=== PATIENT | female | born 1980 | race African-American/Black ===

== ENCOUNTER 2017-10-25 12:54 | Inpatient (IN) | payer OTHER ==
[2017-10-25] MEDS ORDERED: Calcium Gluc 4.6 MEQ/10 ML (100 MG/ML) SLOW IVP PRN ×2 (14:09→16:14)
[2017-10-25 14:11] VITALS: BMI 35.2
[2017-10-25] MEDS ORDERED: FLU VACC QS2017-18 36 mo. & older 0.5 ML SYRINGE IM ONE (14:15)
--- NOTE | 2017-10-25 14:36 | PDOC.LDHP ---
Labor and Delivery H&P Chief complaint: other (elevated BP and headache) HPI: 37 yo who presented for PP visit to [facility] earlier today and was found to have elevated BPs and headaches. Pt delivered at [facility] last week after being induced for PIH. Did not meet criteria during delivery at that time for pre- eclampsia with severe features, was not started on Mag. Pt has migraine headaches chronically, does not take any medication for this. Headaches have been temporal in location, throbbing in nature, usually alternating left and right side of her head. No vision changes, LE swelling, RUQ abd pain, SOB, N/V. - Physical Exam Vital signs reviewed and normal: yes General: NAD, resting Heart: RRR Lungs: nonlabored breathing Abdomen: NTTP Extremeties: other (bilateral LE reflexes present, no clonus) - Assessment Elevated BP - Plan Plan: observation in L&D -: Will observe on L&D, collect pre-E rule out labs, monitor BPs serially. Advised to rest for now. If labwork returns positive with persistently elevated BPs, will start on Mag and observe for 24 hours. <Ashish Cuevas - Last Filed: 10/25/17 14:32> <Tre Herrera - Last Filed: 10/25/17 19:57> Allergies/Adverse Reactions: Allergies Allergy/AdvReac Type Severity Reaction Status Date / Time Sulfa (Sulfonamide Allergy Swollen Verified 10/25/17 13:57 Antibiotics) Lips Attending Addendum - Attending Addendum Date/Time: 10/25/171955 I personally evaluated the patient and discussed the management with Dr. Cuevas. I agree with and repeated the History, Examination, Assessment and Plan documented above with any addition or exceptions noted below. Pt with no headache currently. BP's 150's with a couple in the 170s. No luis/ ruq pain. 3 beat clonus and slightly hyperreflexic. + severe by symptoms and pressures. Will go ahead start magnesium. BP control if >160/110. <Tre Herrera - Last Filed: 10/25/17 19:57>
[2017-10-25 14:43] LABS: Hemoglobin 11.6 g/dL (12.0-16.0); Mean Corpuscular HGB CONC 32.4 g/dL (32.0-36.0); Mean Corpuscular Hemoglobin 27.8 pg (27.0-31.0); Mean Corpuscular Volume 85.9 fl (81.0-99.0); Mean Platelet Volume 7.6 fL (7.4-10.4); Platelet Count 281 thou/uL (130-400); Red Blood Cell (RBC) Count 4.16 mill/uL (4.20-5.40); White Blood Cell (WBC) Count 5.5 thou/uL (4.8-10.8)
[2017-10-25 14:56] LABS: Band 1 % (5-11); Eosinophils 2 % (0-10); Lymphocytes 18 % (21-51); MDiff Complete? YES; Metamyelocyte 1 % (0-0); Monocytes 5 % (0-10); Neutrophil 60 % (42-75); Ovalocytes SLIGHT = 2-5 cells (100X) (0-1/hpf); PLT Morphology Comment Appears Adequate; Polychromasia SLIGHT = 2-3 cells (100X) (0-2/hpf); Reactive Lymphocytes 13 % (0-10); Tear Drops SLIGHT = 2-5 cells (100X) (0-1/hpf)
[2017-10-25 15:06] LABS: ALT (SGPT) 18 U/L (8-55); AST (SGOT) 13 U/L (5-34); Albumin 3.6 g/dL (3.5-5.0); Alkaline Phosphatase 106 U/L (40-150); Anion Gap 10 mmol/L (10-20); BUN (Urea Nitrogen) 14 mg/dL (7.0-18.7); Bilirubin, Total 0.3 mg/dL (0.2-1.2); Calc. Creatinine Clearance 177 mL/min (70-130); Calcium 9.2 mg/dL (7.8-10.44); Carbon Dioxide 25 mmol/L (22-29); Chloride 108 mmol/L (98-107); Estimated GFR-MDRD Greater than 90; Glucose 148 mg/dL (70-105); Potassium 3.6 mmol/L (3.5-5.1); Protein, Total 6.6 g/dL (6.0-8.3); Sodium 139 mmol/L (136-145)
[2017-10-25] MEDS ORDERED: Acetaminophen 500 MG TAB PO PRN (15:30)
[2017-10-25] MEDS ORDERED: Magnesium Sulfate 20 GM/WATER 500 ML BAG IVPB SCH ×2 (16:15→16:45)
--- NOTE | 2017-10-25 16:43 | PDOC.EVN ---
Attending Addendum - Attending Addendum Date/Time: 10/25/17 2722 I personally evaluated the patient and discussed the management with Dr. Herrera on 10/25/17. I agree with the History, Examination, Assessment and Plan documented above with any addition or exceptions noted below. Patient is a 37 yo s/p who presents with BPs elevated into the severe range at [facility] and on L&D, along with intractable headache. Will start Mag for 24 hours for preeclampsia with severe features based on blood pressures. Elevated protein:creatinine ratio likely due to clean catch rather than cath sample, will repeat for accuracy. However, patient has severe features and requires Mag even without proteinuria. Platelets, LFTs normal.
[2017-10-25] MEDS: Lactated Ringer's 1,000 ML IV SCH (16:55)
[2017-10-25] MEDS: Magnesium Sulfate 20 gm/500 ml 20 GM/500 ML BAG IVPB SCH (17:05)
[2017-10-25 20:25] LABS: Creatinine, Urine 49.28 mg/dL (47-110)
[2017-10-25] MEDS: diphenhydrAMINE 50 MG/ML VIAL IVP SCH (20:54)
[2017-10-25] MEDS: Metoclopramide HCl 10 MG/2 ML VIAL IVP SCH (20:55)
[2017-10-25] MEDS ORDERED: Labetalol HCl 100 MG/20 ML VIAL SLOW IVP PRN (22:24)
[2017-10-25] MEDS ORDERED: Labetalol 100 MG TAB PO SCH (22:30)
--- NOTE | 2017-10-25 22:40 | PDOC.EVN ---
Event Note - Event Note Event Note: Saw and examined patient at 2100 on 10/25/17 S: Patient doing well, resting in bed without complaints. She denies any vision changes, dyspnea, chest pain, n/v/abd pain, somnolence, muscle weakness. O: Last BP taken was 156/73 Gen: No acute distress, resting comfortably in bed CV: RRR no murmurs, gallops Resp: CTAB no wheezes, rales Neuro: No focal deficits, brisk reflexes b/l A/P: Pre-eclampsia with severe features: due to severe range BPs. Mag ggt start at 5 pm. Starting patient on TID nifedipine. IV Labetalol PRN. Will continue to monitor BPs and q4h mag checks.
--- NOTE | 2017-10-26 01:34 | PDOC.EVN ---
Event Note - Event Note Event Note: Matt seen and examined for mag check at 0130 on 10/26/17 S: Matt states that she is doing fine. She has continued to have a headache which is the same headache she has had since delivering last week. She rates it anywhere from a 5/10 to 7/10. She denies vision changes, chest pain, dyspnea , somnolence, weakness, abdominal pain/n/v/d. O: UOP has been about 100 ml/hr for the last 4 hours Most recent BP was 126/70. Gen: Resting in bed, no acute distress CV: RRR no murmurs, gallops Resp: CTAB Neuro: Brink reflexes b/l, no focal deficits A/P: Pre-Eclampsia with severe features: Continue Mag checks q4h, monitoring UOP. Continue mag and BP control. No changes at this time. Reglan and benadryl have helped the headaches.
[2017-10-26] MEDS: Magnesium Sulfate 20 gm/500 ml 20 GM/500 ML BAG IVPB SCH ×2 (01:44→11:40)
[2017-10-26] MEDS: diphenhydrAMINE 50 MG/ML VIAL IVP SCH (01:44)
[2017-10-26] MEDS: Metoclopramide HCl 10 MG/2 ML VIAL IVP SCH ×4 (01:44→21:34)
[2017-10-26] MEDS: Acetaminophen 500 MG TAB PO PRN ×3 (01:45→08:12)
--- NOTE | 2017-10-26 05:54 | PDOC.EVN ---
Event Note - Event Note Event Note: Patient seen and examined at 0500 on 10/26/17 S: Matt is doing well, sleeping comfortably upon entering room. States that her headache is improved since taking reglan and benadryl. Denies any symptoms of vision changes, chest pain, dyspnea, n/v/d/abd pain. O: Recent BP 156/83, UOP 100 ml/hr Gen: No acute distress, sleeping comfortably in bed CV: RRR no murmurs, gallops Resp: CTAB no wheezes, rales, rhonchi Neuro: no focal deficits, 2+/4 DTRs A/P: Pre-Eclampsia with severe features: Continue IV mag and q4h Mag checks. Continue headache control with reglan and benadryl. Continue fluids. <Kaleb Capps - Last Filed: 10/26/17 05:49> Attending Addendum - Attending Addendum Date/Time: 10/26/17 2080 I personally evaluated the patient and discussed the management with Dr. Capps. Dr. Todd kincaid. <Tre Herrera - Last Filed: 10/26/17 15:48>
--- NOTE | 2017-10-26 08:17 | PDOC.FM ---
- Subjective Subjective: Ms. Kramer is complaining of a headache this morning. She reports that she's had it all night. She does not want anymore benadryl. She was discharged from the [facility] with reglan for her headaches. She says this headache is worse than her usual migraines. She endorses some photophobia with her headache. - Objective MAR Reviewed: Yes Vital Signs & Weight: Vital Signs (12 hours) Temp Pulse Resp 10/26/17 04:00 98.3 F 63 20 10/26/17 00:00 98.3 F 63 20 Result Diagrams: 10/25/17 14:32 10/25/17 14:32 <Keerthi White - Last Filed: 10/26/17 10:39> - Objective Vital Signs & Weight: Vital Signs (12 hours) Temp Pulse Resp BP 10/26/17 16:05 98.4 F 75 18 10/26/17 14:40 75 142/89 H 10/26/17 12:00 98.1 F 83 18 10/26/17 08:00 98.1 F 75 20 Result Diagrams: 10/25/17 14:32 10/25/17 14:32 <Rl Brooks - Last Filed: 10/26/17 17:37> Phys Exam - Physical Examination Constitutional: NAD HEENT: PERRLA, moist MMs Respiratory: no wheezing, no rales, no rhonchi, clear to auscultation bilateral Cardiovascular: RRR, no significant murmur, no rub Gastrointestinal: soft, non-tender, no distention Musculoskeletal: no edema, pulses present Neurological: non-focal, normal sensation, moves all 4 limbs (normal patellar reflex; adequate urine output) Psychiatric: normal affect, A&O x 3 <Keerthi White - Last Filed: 10/26/17 10:39> Dx/Plan (1) Pre-eclampsia superimposed on chronic hypertension, Code(s): O11.5 - PRE-EXISTING HTN WITH PRE-ECLAMPSIA, COMP THE PUERPERIUM; O10.93 - UNSP PRE-EXISTING HYPERTENSION COMPLICATING THE PUERPERIUM Status: Acute - Plan Plan: 37 yo s/p at the [facility] one week ago with a hx of chronic hypertension and superimposed PreE with severe features during delivery, presents with several severe range blood pressures in clinic and a headache, admitted for chronic hypertension with superimposed PreE with severe features. 1.)Chronic Hypertension 2.)Superimposed PreE with severe features 3.)Headache Plan: Pt was started on magnesium yesterday at 1615. She has had presures in the 130- 140s systolic, however she did have 3 severe range blood pressures this am. She also has had adequate UOP and normal patellar reflexes. She still endorses a headache this am. We will start her on amlodipine 5mg daily for her elevated blood pressures. We will also provide her with reglan q6h nidia, imitrex 2.5mg X1 , and tylenol 100mg q6h scheduled. We will dc her magnesium this afternoon at 24 hours. There does not seem to be good evidence as to when to dc magnesium in the period. However, if her blood pressure are controlled this afternoon and headache resolved, we will feel comfortable with discontinuing magnesium. <Keerthi White - Last Filed: 10/26/17 10:39> Attending Addendum - Attending Addendum Date/Time: 10/26/17 3846 I personally evaluated the patient and discussed the management with Dr. White. I agree with the History, Examination, Assessment and Plan documented above with any addition or exceptions noted below. We will stop Mag at 24 hours. We will adjsut emds to address migraine and elevated BP. <Rl Brooks - Last Filed: 10/26/17 17:37>
[2017-10-26] MEDS ORDERED: NIFEdipine 10 MG CAP PO SCH ×2 (09:00→22:15)
[2017-10-26] MEDS ORDERED: Labetalol 100 MG TAB PO SCH (09:00)
[2017-10-26] MEDS ORDERED: SUMAtriptan Succinate 25 MG TAB PO SCH (10:30)
[2017-10-26] MEDS ORDERED: Metoclopramide HCl 10 MG/2 ML VIAL IVP SCH (10:30)
[2017-10-26] MEDS ORDERED: Amlodipine 5 MG TAB PO SCH (14:30)
[2017-10-26] MEDS: Acetaminophen 500 MG TAB PO SCH ×2 (14:41→21:33)
[2017-10-26] MEDS: Lactated Ringer's 1,000 ML IV SCH ×2 (14:42→16:49)
[2017-10-26] MEDS ORDERED: Sodium Chloride 0.9% 10 ML ONE (21:30)
[2017-10-27] MEDS ORDERED: Sodium Chloride 0.9% 10 ML ONE (04:12)
[2017-10-27] MEDS: Acetaminophen 500 MG TAB PO SCH (04:15)
[2017-10-27] MEDS: Metoclopramide HCl 10 MG/2 ML VIAL IVP SCH (04:16)
[2017-10-27 04:26] VITALS: TEMP 98.6
--- NOTE | 2017-10-27 07:17 | PDOC.FM ---
- Subjective Subjective: Pt denies a headache today. States she slept well and feels well overall. Magnesium dc'd yesterday. - Objective MAR Reviewed: Yes Vital Signs & Weight: Vital Signs (12 hours) Temp Pulse Resp BP BP 10/27/17 04:00 98.6 F 72 16 147/89 H 10/27/17 02:00 69 149/73 H 10/26/17 23:30 98.8 F 82 18 146/75 H 10/26/17 21:30 65 163/91 H 10/26/17 19:30 98.8 F 80 16 143/73 H Result Diagrams: 10/25/17 14:32 10/25/17 14:32 <Keerthi White - Last Filed: 10/27/17 08:13> - Objective Vital Signs & Weight: Vital Signs (12 hours) Temp Pulse Resp BP BP BP 10/27/17 08:57 72 140/78 10/27/17 08:12 98.6 F 72 20 10/27/17 04:00 98.6 F 72 16 147/89 H 10/27/17 02:00 69 149/73 H Result Diagrams: 10/25/17 14:32 10/25/17 14:32 <Tre Herrera - Last Filed: 10/27/17 11:32> Phys Exam - Physical Examination Constitutional: NAD HEENT: PERRLA, moist MMs no increased work of breathing Cardiovascular: RRR Gastrointestinal: soft, non-tender, no distention Musculoskeletal: no edema Neurological: non-focal, normal sensation, moves all 4 limbs Psychiatric: normal affect Skin: no rash <Keerthi White - Last Filed: 10/27/17 08:13> Dx/Plan (1) Pre-eclampsia superimposed on chronic hypertension, Code(s): O11.5 - PRE-EXISTING HTN WITH PRE-ECLAMPSIA, COMP THE PUERPERIUM; O10.93 - UNSP PRE-EXISTING HYPERTENSION COMPLICATING THE PUERPERIUM Status: Acute - Plan Plan: 37 yo [facility] with a hx of chronic hypertension and superimposed PreE with severe features during delivery, presents with several severe range blood pressures in clinic and a headache, admitted for chronic hypertension with superimposed PreE with severe features. 1.)Chronic Hypertension 2.)Superimposed PreE with severe features 3.)Headache Plan: Pt's magnesium discontinued yesterday. She has had pressures in the 140s systolic overnight. She had several elevated pressures in the 160s yesterday afternoon. Her headache did resolve yesterday afternoon however. Amlodipine was increased to 10mg daily. We will discharge her on amlodipine 10mg daily with recommended follow-up with PCP in one week for blood pressure evaluation. <Keerthi White - Last Filed: 10/27/17 08:13> Attending Addendum - Attending Addendum Date/Time: 10/27/17 1132 I personally evaluated the patient and discussed the management with Dr. Morrison. I agree with and repeated the History, Examination, Assessment and Plan documented above with any addition or exceptions noted below. Off mag. No symptoms today (corona, vision changes, RUQ/AILEEN pain). No clonus. Ok for discharge. ED warnings discussed. Dr. Todd kincaid. <Tre Herrera - Last Filed: 10/27/17 11:32>
[2017-10-27 08:57] VITALS: BP 140/78
[2017-10-27] MEDS ORDERED: Amlodipine 5 MG TAB PO SCH (09:00)
[2017-10-27] MEDS ORDERED: Amlodipine 10 MG TAB PO SCH (09:00)
== END 2017-10-27 10:00 | disposition home or self-care (01) | DRG 776 ==
LOC: L&D/OP 12:54 → L&D 18:50 → UNDOADMIN 18:50 → 3SW 10-26 17:43
PROVIDERS: ADMIT Emergency Medicine; ATTEND Emergency Medicine
DX: O11.5 Pre-existing hypertension with pre-eclampsia, complicating the puerperium (principal); O10.93 Unspecified pre-existing hypertension complicating the puerperium; Z87.891 Personal history of nicotine dependence
CPT/HCPCS: 36415; 51702; 80053; 82570; 84156; 85007; 85027; 99285; A4216; J1200; J2765; J3475

== ENCOUNTER 2018-01-23 17:13 | Emergency (ER) | payer OTHER, SELFPAY ==
[2018-01-23] MEDS ORDERED: Ketorolac Tromethamine 60 MG/2 ML VIAL ONE (17:45)
== END 2018-01-23 18:08 | disposition home or self-care (01) ==
LOC: ERS 17:13
DX: M77.9 Enthesopathy, unspecified (principal); I10 Essential (primary) hypertension; F17.210 Nicotine dependence, cigarettes, uncomplicated; Z79.899 Other long term (current) drug therapy
CPT/HCPCS: 29125; 96372; J1885

== ENCOUNTER 2018-08-15 08:53 | Emergency (ER) | payer SELFPAY ==
[2018-08-15 09:26] LABS: Bilirubin Negative (Negative); Blood, Urine Negative (Negative); Clarity CLEAR (Clear); Glucose, Urine (Dipstick) Negative (Negative); Leukocyte Negative (Negative); Nitrite Negative (Negative); Protein, Urine (Dipstick) Negative (Neg-Trace); Specific Gravity, Urine 1.016 (1.002-1.036)
[2018-08-15 09:30] LABS: #Eosinphils 0.1 thou/uL (0.0-0.7); #Lymphocytes 1.7 thou/uL (1.20-3.40); #Monocytes 0.5 thou/uL (0.11-0.59); #Neutrophils 3.4 thou/uL (1.40-6.50); %Basophils 0.1 % (0.0-1.0); %Eosinophils 0.9 % (0.0-10.0); %Lymphocytes 30.1 % (21.0-51.0); %Neutrophils 60.9 % (42.0-75.0); Mean Corpuscular HGB CONC 32.3 g/dL (32.0-36.0); Mean Corpuscular Volume 83.5 fL (78.0-98.0); Mean Platelet Volume 8.4 fL (7.4-10.4); Platelet Count 333 thou/uL (130-400); RBC Distribution Width 11.8 % (11.5-14.5); Red Blood Cell (RBC) Count 4.82 mill/uL (4.20-5.40); White Blood Cell (WBC) Count 5.7 thou/uL (4.8-10.8)
[2018-08-15 09:45] LABS: BHCG - Serum Negative (NEGATIVE); Pregs Control Background? CLEAR/WHITE (CLR/WHITE); Pregs Control Bar Appear? YES (CONTROL BAR)
[2018-08-15 10:02] LABS: Anion Gap 13 mmol/L (10-20); BUN (Urea Nitrogen) 9 mg/dL (7.0-18.7); Calc. Creatinine Clearance 0 mL/min (70-130); Calcium 9.5 mg/dL (7.8-10.44); Carbon Dioxide 22 mmol/L (22-29); Chloride 104 mmol/L (98-107); Estimated GFR-MDRD Greater than 90; Glucose 96 mg/dL (70-105); Potassium 4.1 mmol/L (3.5-5.1); Sodium 135 mmol/L (136-145)
--- NOTE | 2018-08-19 13:28 | EKG ---
Test Reason : DIZZY Blood Pressure : / mmHG Vent. Rate : 063 BPM Atrial Rate : 063 BPM P-R Int : 168 ms QRS Dur : 082 ms QT Int : 426 ms P-R-T Axes : 053 008 037 degrees QTc Int : 435 ms Normal sinus rhythm Minimal voltage criteria for LVH, may be normal variant Borderline ECG Confirmed by KAMI CIFUENTES ([id number]), assistant film editor RAFI IRWIN ([id number]) on 08/19/2018 1:28:28 PM Referred By: MANJIT Confirmed By:KAMI CIFUENTES
== END 2018-08-15 11:57 | disposition home or self-care (01) ==
LOC: ERS 08:53
DX: I10 Essential (primary) hypertension (principal); Z79.899 Other long term (current) drug therapy
CPT/HCPCS: 80048; 81003; 84703; 85025; 93005

== ENCOUNTER 2018-09-21 11:22 | Emergency (ER) | payer SELFPAY ==
[2018-09-21 12:38] LABS: #Eosinphils 0.1 thou/uL (0.0-0.7); #Lymphocytes 1.7 thou/uL (1.20-3.40); #Monocytes 0.4 thou/uL (0.11-0.59); %Basophils 0.4 % (0.0-1.0); %Eosinophils 0.7 % (0.0-10.0); %Lymphocytes 24.1 % (21.0-51.0); %Monocytes 5.4 % (0.0-10.0); %Neutrophils 69.3 % (42.0-75.0); Hemoglobin 12.7 g/dL (12.0-16.0); Mean Corpuscular HGB CONC 31.5 g/dL (32.0-36.0); Mean Corpuscular Hemoglobin 27.4 pg (27.0-31.0); Mean Corpuscular Volume 86.9 fL (78.0-98.0); Platelet Count 284 thou/uL (130-400); RBC Distribution Width 12.2 % (11.5-14.5); Red Blood Cell (RBC) Count 4.64 mill/uL (4.20-5.40); White Blood Cell (WBC) Count 7.2 thou/uL (4.8-10.8)
[2018-09-21 13:01] LABS: ALT (SGPT) 19 U/L (8-55); AST (SGOT) 23 U/L (5-34); Albumin 4.1 g/dL (3.5-5.0); Alkaline Phosphatase 73 U/L (40-150); Anion Gap 12 mmol/L (10-20); BUN (Urea Nitrogen) 12 mg/dL (7.0-18.7); Bilirubin, Total 0.2 mg/dL (0.2-1.2); Calc. Creatinine Clearance 0 mL/min (70-130); Calcium 9.6 mg/dL (7.8-10.44); Carbon Dioxide 24 mmol/L (22-29); Chloride 105 mmol/L (98-107); Estimated GFR-MDRD Greater than 90; Globulin 3.2 g/dL (2.4-3.5); Glucose 122 mg/dL (70-105); Protein, Total 7.3 g/dL (6.0-8.3); Sodium 137 mmol/L (136-145)
[2018-09-21] MEDS ORDERED: cefTRIAXone\\ROCEPHIN 250 MG VIAL ONE (13:11)
[2018-09-21] MEDS ORDERED: Lidocaine 1% PF 5 ML VIAL ONE (13:11)
[2018-09-21] MEDS ORDERED: Azithromycin 250 MG TAB ONE (13:11)
[2018-09-21 13:53] LABS: BHCG - Serum Negative (NEGATIVE)
[2018-09-21 13:54] LABS: Pregs Control Background? CLEAR/WHITE (CLR/WHITE); Pregs Control Bar Appear? YES (CONTROL BAR)
--- NOTE | 2018-09-21 15:03 | CT ---
ABDOMEN CT WITH CONTRAST PELVIC CT WITH CONTRAST: HISTORY: Right lower quadrant pain. Left lower quadrant pain. COMPARISON: None. ABDOMEN CT: Lung bases are clear. Heart size is normal. No pericardial effusion. The descending thoracic aorta and abdominal aorta are normal in caliber. No paraaortic fat stranding. Intra- and extrahepatic portal vein is patent. Liver, spleen, pancreas, and adrenal glands have appropriate enhancement. No gastrohepatic, retrocrural, or periportal lymphadenopathy. Symmetric enhancement of the kidneys. Nonobstructing 5 mm calculus in the right kidney. Bilaterally , no obstructive uropathy. No mesenteric mass, lymphadenopathy, free air, or free fluid. There are a few scattered nonspecific mesenteric lymph nodes. Limited evaluation of the alimentary canal due to the lack of oral contrast. Gastric mucosal is unre markable. Multiple normal-caliber small bowel loops. However, the plicae circularis prominent in th e jejunal loops. The possibility of an early inflammatory process cannot be excluded. Ileocecal may ction is normal. There is a normal-caliber appendix in the region of the cecal apex. Scattered feca l material in nondistended, nondilated colon. Occasional diverticulum. No diverticulitis. CT PELVIS: Urinary bladder is unremarkable. Enlarged heterogeneous uterus with multifocal mixed attenuation mas ses compatible with uterine leiomyomas. Confirmation with nonemergent pelvic ultrasound. Note, uter ine leiomyomas have been demonstrated on an ultrasound from July 2009. No pelvic free air or sintia e fluid. No lytic or blastic lesions in the osseous structures. IMPRESSION: 1. Nonobstructing calculus in the right intrarenal collecting system. 2. Normal caliber appendix. 3. Diverticulosis, without evidence of diverticulitis. 4. Enlarged uterus with multiple uterine leiomyomas. Nonemergent pelvic ultrasound. POS: [facility]
[2018-09-21 15:56] LABS: Bilirubin Negative (Negative); Blood, Urine Negative (Negative); Clarity CLEAR (Clear); Glucose, Urine (Dipstick) Negative (Negative); Leukocyte Negative (Negative); Nitrite Negative (Negative); Protein, Urine (Dipstick) Negative (Neg-Trace)
[2018-09-21 15:57] LABS: Pregnancy Test - Urine (BHCG) Negative (Negative); Specific Gravity, Urine 1.048 (1.002-1.036)
[2018-09-21 15:58] LABS: Pregu Control Background? CLEAR/WHITE (CLR/WHITE); Pregu Control Bar Appear? YES (CONTROL BAR); Specific Gravity 1.048 (1.002-1.036)
[2018-09-21] MEDS ORDERED: ISOVUE-370 76%-LOCM 1 ML ONE (16:25)
[2018-09-22 20:25] LABS: Chlamydia by PCR Not Detected (NotDetected); GC by PCR Not Detected (NotDetected)
== END 2018-09-21 16:15 | disposition home or self-care (01) ==
LOC: ERS 11:22
DX: N76.0 Acute vaginitis (principal); D25.9 Leiomyoma of uterus, unspecified; J06.9 Acute upper respiratory infection, unspecified; I10 Essential (primary) hypertension; Z79.899 Other long term (current) drug therapy
CPT/HCPCS: 36415; 74177; 80053; 81003; 81025; 84703; 85025; 87480; 87491; 87510; 87591; 87660; 87804; 96372; J0696; J2001

== ENCOUNTER 2019-02-04 12:04 | Emergency (ER) | payer SELFPAY ==
--- NOTE | 2019-02-04 12:42 | RAD ---
XR Chest Pa Lat STANDARD History: Cough and congestion Comparison: Radiograph 2016 Findings: Lungs are clear. No pneumothorax. No effusion. No acute osseous abnormality. Impression: No acute intrathoracic abnormality
[2019-02-04] MEDS ORDERED: Dexamethasone 10 MG/ML VIAL ONE (12:56)
== END 2019-02-04 13:14 | disposition home or self-care (01) ==
LOC: ERS 12:04
DX: J20.9 Acute bronchitis, unspecified (principal); J06.9 Acute upper respiratory infection, unspecified; I10 Essential (primary) hypertension; Z79.899 Other long term (current) drug therapy
CPT/HCPCS: 71046; 96372; J1100

== ENCOUNTER 2019-03-14 08:35 | Emergency (ER) | payer SELFPAY ==
[2019-03-14 09:51] LABS: Bacteria/HPF None Seen HPF (None Seen); Bilirubin Negative (Negative); Blood, Urine Negative (Negative); Clarity Clear (Clear); Glucose, Urine (Dipstick) Normal (Negative); Leukocyte 25 Leu/uL (Negative); Nitrite Negative (Negative); Protein, Urine (Dipstick) Negative (Neg-Trace); RBC/HPF 0-3 HPF (0-3); Squamous Epithelial 0-3 HPF (0-3); Urobilinogen Normal mg/dL (Less than 2); WBC/HPF 0-3 HPF (0-3)
== END 2019-03-14 10:01 | disposition home or self-care (01) ==
LOC: ERS 08:35
DX: Z00.00 Encounter for general adult medical examination without abnormal findings (principal); I10 Essential (primary) hypertension
CPT/HCPCS: 81003; 81015; 99281

== ENCOUNTER 2020-01-27 11:17 | Emergency (ER) | payer SELFPAY ==
[2020-01-27 12:04] LABS: Bacteria/HPF 2+ HPF (None Seen); Bilirubin Negative (Negative); Blood, Urine Negative (Negative); Clarity Turbid (Clear); Glucose, Urine (Dipstick) Normal (Negative); Leukocyte Negative Leu/uL (Negative); Nitrite Negative (Negative); Protein, Urine (Dipstick) 50 mg/dL (Neg-Trace); Squamous Epithelial 21-50 HPF (0-3); Urobilinogen 3 mg/dL (Less than 2)
[2020-01-27 12:05] LABS: Pregnancy Test - Urine (BHCG) Negative (Negative); Pregu Control Background? CLEAR/WHITE (CLR/WHITE); Pregu Control Bar Appear? YES (CONTROL BAR); Specific Gravity 1.048 (1.002-1.036)
== END 2020-01-27 13:15 | disposition home or self-care (01) ==
LOC: ERS 11:17
DX: N30.00 Acute cystitis without hematuria (principal); I10 Essential (primary) hypertension; Z79.899 Other long term (current) drug therapy
CPT/HCPCS: 81003; 81015; 81025; 99283

== ENCOUNTER 2020-05-22 11:58 | Emergency (ER) | payer BC, SELFPAY ==
[2020-05-22] MEDS ORDERED: Ketorolac Tromethamine 30 MG/ML VIAL ONE (15:45)
[2020-05-22] MEDS ORDERED: Metoclopramide HCl 10 MG/2 ML VIAL ONE (15:45)
[2020-05-22] MEDS ORDERED: diphenhydrAMINE 50 MG/ML VIAL ONE (15:45)
== END 2020-05-22 16:10 | disposition home or self-care (01) ==
LOC: ERS 11:58
DX: R51.9 Headache, unspecified (principal); I10 Essential (primary) hypertension; F17.210 Nicotine dependence, cigarettes, uncomplicated; Z79.899 Other long term (current) drug therapy
CPT/HCPCS: 96372; 99283; J1200; J1885; J2765

== ENCOUNTER 2021-01-21 06:53 | Outpatient (CLI) | payer MEDICAID | END 2021-01-21 06:54 | disposition home or self-care (01) | LOC: BICULT 06:53 | PROVIDERS: ATTEND Nurse Practitioner Family | DX: N93.9 Abnormal uterine and vaginal bleeding, unspecified (principal); N83.201 Unspecified ovarian cyst, right side | CPT/HCPCS: 76856; 93976 ==

== ENCOUNTER 2021-06-08 07:17 | Emergency (ER) | payer MEDICAID, SELFPAY ==
[2021-06-08 12:28] LABS: SARS-CoV-2 PCR by NAA Not Detected (NotDetected)
== END 2021-06-08 07:50 | disposition home or self-care (01) ==
LOC: ERS 07:17
DX: U07.1 COVID-19 (principal); I10 Essential (primary) hypertension; F17.210 Nicotine dependence, cigarettes, uncomplicated; Z79.899 Other long term (current) drug therapy
CPT/HCPCS: 99283; U0003; U0005

== ENCOUNTER 2023-05-22 15:06 | Emergency (ER) | payer MEDICAID ==
[~2023-05-22 15:06] MED LIST: Iopamidol-370 76% 500 ML MDV (1 ML CHARGE) ONE
[2023-05-22 16:18] LABS: #Eosinphils 0.1 thou/uL (0.0-0.7); #Monocytes 0.4 thou/uL (0.11-0.59); %Basophils 0.2 % (0.0-1.0); %Eosinophils 1.8 % (0.0-10.0); %Lymphocytes 39.9 % (21.0-51.0); %Monocytes 7.2 % (0.0-10.0); %Neutrophils 50.7 % (42.0-75.0); Hematocrit 39.5 % (36.0-47.0); Hemoglobin 12.6 g/dL (12.0-16.0); Mean Corpuscular HGB CONC 31.9 g/dL (32.0-36.0); Mean Corpuscular Hemoglobin 27.3 pg (27.0-31.0); Mean Corpuscular Volume 85.5 fl (78.0-98.0); Mean Platelet Volume 10.1 fL (7.4-10.4); Platelet Count 324 10x3/uL (130-400); RBC Distribution Width 13.3 % (11.5-14.5); Red Blood Cell (RBC) Count 4.62 mill/uL (4.20-5.40)
[2023-05-22 16:26] LABS: BHCG - Serum Negative (NEGATIVE); Pregs Control Background? CLEAR/WHITE (CLR/WHITE); Pregs Control Bar Appear? YES (CONTROL BAR)
[2023-05-22 16:45] LABS: ALT (SGPT) 25 U/L (8-55); AST (SGOT) 22 U/L (5-34); Albumin 4.5 g/dL (3.5-5.0); Alkaline Phosphatase 74 U/L (40-110); Anion Gap 13 mmol/L (10-20); BUN (Urea Nitrogen) 13 mg/dL (7.0-18.7); Bilirubin, Total 0.3 mg/dL (0.2-1.2); Calc. Creatinine Clearance 0 mL/min (70-130); Calcium 9.5 mg/dL (7.8-10.44); Carbon Dioxide 27 mmol/L (22-29); Chloride 105 mmol/L (98-107); Estimated GFR 109; Globulin 2.5 g/dL (2.4-3.5); Glucose 87 mg/dL (70-105); Lipase 26 U/L (8-78); Potassium 3.9 mmol/L (3.5-5.1); Sodium 141 mmol/L (136-145)
[2023-05-22 17:27] LABS: Bilirubin Negative (Negative); Blood, Urine 1+ (Negative); CAUTI Indications for Culture Pelvic or flank pain; Clarity Clear (Clear); Glucose, Urine (Dipstick) Normal (Negative); Ketone, Urine Negative (Negative); Leukocyte Negative Leu/uL (Negative); Nitrite Negative (Negative); Protein, Urine (Dipstick) Negative (Neg-Trace); RBC/HPF 0-3 HPF (0-3); Specific Gravity, Urine 1.022 (1.002-1.036); Urobilinogen Normal mg/dL (Less than 2); WBC/HPF 0-3 HPF (0-3)
[2023-05-22 17:30] LABS: Bacteria/HPF 1+ HPF (None Seen); Urine Culture Reflex No No
== END 2023-05-22 18:51 | disposition home or self-care (01) ==
LOC: ERS 15:06
DX: M54.9 Dorsalgia, unspecified (principal); I10 Essential (primary) hypertension; Z79.899 Other long term (current) drug therapy
CPT/HCPCS: 36415; 74177; 80053; 81001; 83690; 84703; 85025; 96374; Q9967